=== PATIENT | male | born 1990 | race African-American/Black ===

== ENCOUNTER 2018-07-06 09:00 | Emergency (ER) | payer SELFPAY ==
[2018-07-06] MEDS ORDERED: Albuterol Sulfate 2.5 mg/3 ml Neb ONE (09:20)
[2018-07-06] MEDS ORDERED: Albuterol Sulfate 2.5 mg/0.5 ml Neb ONE (09:20)
--- NOTE | 2018-07-06 09:51 | RAD ---
CHEST 2 VIEWS: Date: 07/06/18 HISTORY: Cough with new wheezing. Chest congestion. COMPARISON: 07/12/10. FINDINGS: Heart size is within normal limits. Lungs are clear. No pneumonia, edema, or pleural effusion. IMPRESSION: No acute intrathoracic disease. Stable from prior study of 07/12/10. POS: [facility]
== END 2018-07-06 10:05 | disposition home or self-care (01) ==
LOC: SCSER 09:00
DX: J45.909 Unspecified asthma, uncomplicated (principal); J06.9 Acute upper respiratory infection, unspecified
CPT/HCPCS: 71046; 87804; 94640; J7611

== ENCOUNTER 2018-08-07 09:54 | Emergency (ER) | payer SELFPAY ==
[2018-08-07] MEDS ORDERED: Proparacaine 0.5% Opth 15 ML BOT ONE (10:07)
[2018-08-07] MEDS ORDERED: Fluorescein Opthalmic Strip ONE (10:07)
== END 2018-08-07 10:52 | disposition home or self-care (01) ==
LOC: SCSER 09:54
DX: H10.33 Unspecified acute conjunctivitis, bilateral (principal)
CPT/HCPCS: 99282

== ENCOUNTER 2018-11-26 09:32 | Emergency (ER) | payer SELFPAY ==
[2018-11-26] MEDS ORDERED: predniSONE 20 MG TAB ONE (09:48)
== END 2018-11-26 09:57 | disposition home or self-care (01) ==
LOC: SCSER 09:32
DX: T63.461A Toxic effect of venom of wasps, accidental (unintentional), initial encounter (principal)
CPT/HCPCS: 99282; J7512

== ENCOUNTER 2020-10-28 07:58 | Emergency (ER) | payer SELFPAY | END 2020-10-28 10:01 | disposition home or self-care (01) | LOC: ERS 07:58 | DX: S93.402A Sprain of unspecified ligament of left ankle, initial encounter (principal); W17.89XA Other fall from one level to another, initial encounter; Y93.H2 Activity, gardening and landscaping ==